=== PATIENT | female | born 1975 | race Caucasian/White ===

== ENCOUNTER → 2021-09-08 | Outpatient (CLI) | payer OTHER ==
--- NOTE | 2021-09-08 16:04 | Diagnostic Imaging Report ---
PROCEDURE: Pelvic comp/transvaginal sonogram. TECHNIQUE: Complete transabdominal and transvaginal pelvic ultrasound was performed. In addition, limited pelvic Doppler was performed. INDICATION: Abnormal uterine bleeding. FINDINGS: Uterus is anteverted measuring 9.1 x 5.3 x 6.1 cm. Endometrium is 9 mm in thickness. There is an area of heterogeneity in the right uterus measuring 2.3 x 1.8 x 1.7 cm, suggestive of a fibroid. Right ovary measures 2.8 x 1.1 x 2.3 cm, and the left ovary measures 4.1 x 3.4 x 4.6 cm. Left ovary does contain a septated cystic mass measuring 3.7 x 3.2 x 3.7 cm. Both ovaries demonstrate blood flow. No free fluid is seen. IMPRESSION: 1. Uterine fibroid. 2. Complex septated cystic left ovarian mass. Follow-up ultrasound in 6-8 weeks is recommended to confirm clearing. Dictated by: Dictated on workstation # [id number]
== END ==
LOC: RAD 12:58
PROVIDERS: ATTEND Obstetrics & Gynecology
DX: D25.9 Leiomyoma of uterus, unspecified (principal); N83.202 Unspecified ovarian cyst, left side
CPT/HCPCS: 76830; 76856

== ENCOUNTER 2021-10-16 05:32 | Outpatient (CLI) | payer OTHER ==
[~2021-10-16] VITALS: Ht 154.9 cm; Wt 62.3 kg
[2021-10-17] MEDS ORDERED: LEVO100C4 PO (13:27)
[2021-10-17] MEDS ORDERED: CETI10TA49 PO (13:28)
[2021-10-17] MEDS ORDERED: ZOLP6.252 PO (13:28)
== END 2021-10-17 13:29 | disposition home or self-care (01) ==
LOC: PREOP 05:32
PROVIDERS: ATTEND Obstetrics & Gynecology
DX: Z01.818 Encounter for other preprocedural examination (principal)

== ENCOUNTER 2021-10-23 08:28 | Day surgery (SDC) | payer OTHER ==
[~2021-10-23] VITALS: Ht 154 cm; Wt 62.3 kg
[2021-10-23] VITALS (9 sets, daily range): BP systolic 92–136; BP diastolic 49–80
[~2021-10-23 08:28] MED LIST: CETI10TA49 PO; LEVO100C4 PO; ZOLP6.252 PO
[2021-10-23 09:05] LABS: BASOPHILS # (AUTO) 0.1 10^3/uL (0.0-0.1); BASOPHILS % (AUTO) 2 % (0-10); EOSINOPHILS # (AUTO) 0.4 10^3/uL (0.0-0.3); EOSINOPHILS % (AUTO) 7 % (0-10); HEMATOCRIT 34 % (35-52); HEMOGLOBIN 11.1 g/dL (11.5-16.0); LYMPHOCYTES % (AUTO) 33 % (12-44); MEAN CORPUSCULAR HEMOGLOBIN 29 pg (25-34); MEAN CORPUSCULAR HGB CONC 33 g/dL (32-36); MEAN CORPUSCULAR VOLUME 87 fL (80-99); MEAN PLATELET VOLUME 11.4 fL (9.0-12.2); MONOCYTES # (AUTO) 0.9 10^3/uL (0.0-1.0); MONOCYTES % (AUTO) 15 % (0-12); NEUTROPHILS # (AUTO) 2.6 10^3/uL (1.8-7.8); NEUTROPHILS % (AUTO) 43 % (42-75); PLATELET COUNT 255 10^3/uL (130-400); WHITE BLOOD COUNT 6.1 10^3/uL (4.3-11.0)
[2021-10-23] MEDS ORDERED: BUPIVACAINE 0.25% 30 ML (SENSORCAINE) VIAL ONE (09:13)
[2021-10-23] MEDS ORDERED: FAMOTIDINE 20MG/2ML IV (PEPCID) ONE (09:21)
[2021-10-23] MEDS: LACTATED RINGERS 1,000 ML IV PRN ×2 (09:24→10:36)
[2021-10-23] MEDS ORDERED: FAMOTIDINE 20MG/2ML IV (PEPCID) IV ONE (09:30)
--- NOTE | 2021-10-23 09:59 | Progress Note-Pre Operative ---
Pre-Operative Progress Note H&P Reviewed The H&P was reviewed, patient examined and no changes noted. Date Seen by Provider: Oct 23, 2021 Time Seen by Provider: 09:50 Date H&P Reviewed: Oct 23, 2021 Time H&P Reviewed: 09:50 Pre-Operative Diagnosis: WANDER Wang DO Oct 23, 2021 09:59
[2021-10-23] MEDS ORDERED: proPOfol 200 MG/20 ML (DIPRIVAN) VIAL IV ONE (10:00)
[2021-10-23] MEDS ORDERED: LIDOCAINE PF 2% 5 ML (XYLOCAINE) VIAL ONE (10:00)
[2021-10-23] MEDS ORDERED: MIDAZOLAM 2 MG/2 ML (VERSED) VIAL ONE (10:00)
[2021-10-23] MEDS ORDERED: fentaNYL INJ 100 MCG/2 ML AMP ONE (10:00)
[2021-10-23] MEDS ORDERED: ONDANSETRON 4 MG/2 ML (SDV) Z0FRAN ONE (10:00)
[2021-10-23] MEDS ORDERED: SEVOFLURANE (ULTANE) 15 ML INHAL SOLN ONE ×2 (10:00→10:59)
[2021-10-23] MEDS ORDERED: KETOROLAC 30 MG/ML VIAL IVP ONE (10:15)
[2021-10-23] MEDS ORDERED: ONDANSETRON 4 MG/2 ML (SDV) Z0FRAN IVP PRN ×2 (10:15→11:15)
[2021-10-23] MEDS ORDERED: D5 LR IV SOLUTION 1,000 ML IV SCH (10:15)
--- NOTE | 2021-10-23 10:15 | Discharge Inst-Women's Service ---
Discharge Inst-Women's Serv Depart Medication/Instructions New, Converted or Re-Newed RX: Transmitted to Pharmacy Problems Reviewed?: Yes Consults/Follow Up Additional Follow Up: Yes Orders/Referrals Dr. Gregory in weeks Activity Activity: Activity as Tolerated Driving Instructions: No Driving for 1 Week NO SMOKING: NO SMOKING Nothing Inside Vagina: No Douching, No [place], No Tampons Diet Discharge Diet: No Restrictions Symptoms to Report to : Pain Increased, Fever Over 101 Degrees F, Vaginal Bleeding Increase, Questions/Concerns WANDER GREGORY DO Oct 23, 2021 10:15
--- NOTE | 2021-10-23 10:38 | History & Physical-Surgical ---
HPO-Surgical History of Present Illness Chief Complaint: AUB Diagnosis/Surgical Indication: aub Procedure: DILATION AND CURETTAGE Date of Surgery: Oct 23, 2021 Allergies and Home Medications Allergies Coded Allergies: cephalexin (Verified Adverse Reaction, Unknown, NAUSEA/EMESIS, 10/17/21) Patient Home Medication List Home Medication List Reviewed: Yes Cetirizine HCl (Zyrtec) 10 Mg Tablet, 10 MG PO UD, (Reported) Entered as Reported by: KOLBY ALLEN on 10/17/211327 Last Action: Last Taken Edited Levothyroxine Sodium (Levothyroxine) 100 Mcg Capsule, 100 MCG PO DAILY, (Reported) Entered as Reported by: KOLBY ALLEN on 10/17/211326 Last Action: Last Taken Edited Zolpidem Tartrate (Ambien Cr) 6.25 Mg Tab.mphase, 6.25 MG PO HS, (Reported) Entered as Reported by: KOLBY ALLEN on 10/17/211327 Last Action: Last Taken Edited Past Szhwpmk-Zwsglg-Ulouzm Hx Patient Social History Smoking Status: Never a Smoker 2nd Hand Smoke Exposure: No Recent Hopitalizations: No Seasonal Allergies Seasonal Allergies: Yes Surgeries Yes (TUBAL LIGATION) Appendectomy, Gallbladder Respiratory No Cardiovascular Yes (HX SEVERAL YEARS AGO-NO ISSUES ANYMORE) Irregular Heartbeat Neurological Yes Headaches /Migraines Reproductive System Female Reproductive Disorders: Menstrual 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 Gastrointestinal Yes Gall Bladder Disease Musculoskeletal Yes Fractures Endocrine History of Endocrine Disorders: Yes (HASHIMOTOS) Endocrine Disorders: Hypothyroidsim Cancer No Psychosocial History of Psychiatric Problem: No Integumentary History of Skin or Integumenta: No Blood Transfusions History of Blood Disorders: No Exam Vital Signs Vital Signs 10/23/21 08:55 Temp 36.2 Pulse 63 Resp 18 B/P (MAP) 136/74 (94) Pulse Ox 100 O2 Delivery Room Air Capillary Refill : Labs Laboratory Tests Test 10/23/21 08:55 Range/Units White Blood Count 6.1 4.3-11.0 10^3/uL Red Blood Count 3.88 3.80-5.11 10^6/uL Hemoglobin 11.1 L 11.5-16.0 g/dL Hematocrit 34 L 35-52 % Mean Corpuscular Volume 87 80-99 fL Mean Corpuscular Hemoglobin 29 25-34 pg Mean Corpuscular Hemoglobin Concent 33 32-36 g/dL Red Cell Distribution Width 13.2 10.0-14.5 % Platelet Count 255 130-400 10^3/uL Mean Platelet Volume 11.4 9.0-12.2 fL Immature Granulocyte % (Auto) 0 % Neutrophils (%) (Auto) 43 42-75 % Lymphocytes (%) (Auto) 33 12-44 % Monocytes (%) (Auto) 15 H 0-12 % Eosinophils (%) (Auto) 7 0-10 % Basophils (%) (Auto) 2 0-10 % Neutrophils # (Auto) 2.6 1.8-7.8 10^3/uL Lymphocytes # (Auto) 2.0 1.0-4.0 10^3/uL Monocytes # (Auto) 0.9 0.0-1.0 10^3/uL Eosinophils # (Auto) 0.4 H 0.0-0.3 10^3/uL Basophils # (Auto) 0.1 0.0-0.1 10^3/uL Immature Granulocyte # (Auto) 0.0 0.0-0.1 10^3/uL General Appearance: Alert, Oriented X3 HEENT: Atraumatic Respiratory: Clear to Auscultation Cardiovascular: Regular Rate Abdominal: Normal Bowel Sounds Extremities: No Clubbing Skin: No Rashes Neuro: Normal Gait Psych/Mental Status: Mental Status NL Assessment/Plan Assessment and Plan Plan: Dilatation and Curretage Admission Diagnosis 46 yo w/ AUB Admission Status: Observation WANDER GREOGRY DO Oct 23, 2021 10:38
--- NOTE | 2021-10-23 11:10 | Anesthesia-General Post-Op ---
General Patient Condition Mental Status/LOC: Same as Preop Cardiovascular: Satisfactory Nausea/Vomiting: Absent Respiratory: Satisfactory Pain: Controlled Complications: Absent Post Op Complications Complications None Follow Up Care/Instructions Patient Instructions None needed. Anesthesia/Patient Condition Patient Condition Patient is doing well, no complaints, stable vital signs, no apparent adverse anesthesia problems. No complications reported per nursing. JOSE ALLEN CRNA Oct 23, 2021 11:10
[2021-10-23] MEDS ORDERED: MEPERIDINE (DEMEROL) INJ 50 MG/ML IVP ONE (11:15)
[2021-10-23] MEDS ORDERED: fentaNYL INJ 100 MCG/2 ML AMP IVP ONE (11:15)
[2021-10-23] MEDS ORDERED: morphine INJ 10 MG/ML 1ML (SYR OR VIAL) IVP ONE (11:15)
--- NOTE | 2021-10-26 11:47 | OPERATIVE REPORT ---
DATE OF SERVICE: PREOPERATIVE DIAGNOSES: A 38-year-old female with abnormal uterine bleeding. POSTOPERATIVE DIAGNOSES: A 38-year-old female with abnormal uterine bleeding. PROCEDURE PERFORMED: D and C. SURGEON: Wander rGegory DO ANESTHESIA: LMA general. ESTIMATED BLOOD LOSS: Minimal. URINE OUTPUT: 50 mL drained at the end of the procedure. FLUIDS: 800 mL lactated Ringer's solution. FINDINGS: 1. A grossly normal appearing external female genitalia. 2. Moderate to copious amount of endometrial curetting tissue collected. SPECIMEN SENT: Endometrial curettings. INDICATIONS FOR PROCEDURE: This 40-year-old female was a patient, who had sought care in my office for abnormal bleeding that had been occurring due to her age. I discussed with the patient need for endometrial sampling as well as the possibility of D and C being both diagnostic and curative. She was agreeable to proceed. A consent was obtained in the preoperative area after all of her questions were answered and the patient was taken to the operating room. OPERATIVE REPORT IN DETAIL: Once in the operating room, general anesthesia was found to be adequate, she was placed in dorsal lithotomy position, prepped and draped in a normal sterile fashion, where a timeout was performed. A weighted speculum was inserted in the patient's vagina after the bladder was drained using straight catheterization. A right angle retractor was used to visualize the cervix. It was grasped at 12 o'clock position using a long Allis clamp. I then performed paracervical block at 3 and 9 o'clock positions on the cervix. Care was taken to aspirate for injecting 5 mL of 0.25% Marcaine injected into each site. I then gently sound the uterine cavity depth, which was found to be 8 cm. I dilated the cervix using Hanks dilators to maximum dilatation approximately 1 cm, at which point, I performed a gentle curettage of all endometrial surfaces using a medium size endometrial curette. After there was a gentle uterine cry appreciated on all surfaces, the tissue that was collected is captured and sent as endometrial curettings, after which all instruments were removed from the patient's vagina. The patient tolerated the procedure well and sent to recovery area in a stable condition. Lap and sponge counts were correct at the end of the procedure. Instrument counts were correct as well. Job ID: [id number] DocumentID: [id number] Dictated Date: 10/26/2021 08:15:13 Electrolysis Operator Date: 10/26/2021 11:46:25 Dictated By: WANDER GREGORY DO
== END 2021-10-23 13:00 | disposition home or self-care (01) ==
LOC: SDC 08:28
PROVIDERS: ATTEND Obstetrics & Gynecology
DX: N84.0 Polyp of corpus uteri (principal)
CPT/HCPCS: 36415; 84703; 85025; 86850; 86900; 86901; 87081

== ENCOUNTER → 2021-11-17 | Outpatient (CLI) | payer OTHER ==
--- NOTE | 2021-11-17 13:24 | Diagnostic Imaging Report ---
PROCEDURE: Pelvic comp/transvaginal sonogram. TECHNIQUE: Complete transabdominal and transvaginal pelvic ultrasound was performed. In addition, limited pelvic Doppler was performed. INDICATION: Septated cyst, followup. Correlation is made with prior ultrasound from 09/08/2021. Uterus measures 9.7 x 5.3 x 5.9 cm. Endometrium is 9 mm in thickness. Cervical nabothian cysts are noted. Right ovary measures 3.1 x 1.4 x 2.0 cm, the left ovary measures 3.6 x 1.7 x 2.7 cm. There are several cystic structures involving the left ovary, largest approximately 2.3 x 1.7 x 1.8 cm. Cyst on prior study measured approximately 3.7 cm. There is blood flow to both ovaries. No free fluid is seen. IMPRESSION: 1. Decrease in size of left ovarian cyst when compared with prior study from 09/08/2021. Dictated by: Dictated on workstation # [id number]
== END ==
LOC: RAD 11:24
PROVIDERS: ATTEND Nurse Practitioner Women's Health
DX: N83.202 Unspecified ovarian cyst, left side (principal)
CPT/HCPCS: 76830; 76856

== ENCOUNTER 2022-01-15 05:25 | Outpatient (CLI) | payer OTHER ==
[~2022-01-15] VITALS: Ht 154.9 cm; Wt 63.0 kg
[2022-01-16] MEDS ORDERED: RT-ALBUINH IH (11:39)
== END 2022-01-16 11:40 | disposition home or self-care (01) ==
LOC: PREOP 05:25
PROVIDERS: ATTEND Obstetrics & Gynecology
DX: Z01.818 Encounter for other preprocedural examination (principal)

== ENCOUNTER 2022-01-22 06:02 | Day surgery (SDC) | payer OTHER ==
[~2022-01-22] VITALS: Ht 154.9 cm; Wt 63.0 kg
[2022-01-22] VITALS (8 sets, daily range): BP systolic 97–143; BP diastolic 36–82
[~2022-01-22 06:02] MED LIST changes: +RT-ALBUINH IH
[2022-01-22] MEDS ORDERED: CLINDAMYCIN 900 MG/50 ML IVPB 50 ML IV ONE (06:30)
[2022-01-22] MEDS ORDERED: metroNIDAZOLE 500MG/100ML IVPB 100 ML IV ONE (06:30)
[2022-01-22] MEDS ORDERED: LACTATED RINGERS 1,000 ML IV PRN (06:30)
[2022-01-22] MEDS ORDERED: FAMOTIDINE 20MG/2ML IV (PEPCID) IV ONE (06:45)
[2022-01-22] MEDS ORDERED: ONDANSETRON 4 MG/2 ML (SDV) Z0FRAN IV ONE (06:45)
[2022-01-22] MEDS ORDERED: LIDOCAINE PF 2% 5 ML (XYLOCAINE) VIAL ONE (07:00)
[2022-01-22] MEDS ORDERED: ROCURONIUM 10 MG/ML 5 ML SYRINGE IV ONE (07:00)
[2022-01-22] MEDS ORDERED: proPOfol 200 MG/20 ML (DIPRIVAN) VIAL IV ONE (07:00)
[2022-01-22] MEDS ORDERED: NEOSTIGMINE 3 MG/3 ML VIAL ONE (07:00)
[2022-01-22] MEDS ORDERED: ONDANSETRON 4 MG/2 ML (SDV) Z0FRAN ONE (07:00)
[2022-01-22] MEDS ORDERED: fentaNYL INJ 100 MCG/2 ML AMP ONE (07:00)
[2022-01-22] MEDS ORDERED: MIDAZOLAM 2 MG/2 ML (VERSED) VIAL ONE (07:00)
[2022-01-22] MEDS ORDERED: GLYCOPYRROLATE 0.2 MG/ML (ROBINUL) 2 ML VIAL ONE (07:00)
[2022-01-22 07:10] LABS: BASOPHILS # (AUTO) 0.1 10^3/uL (0.0-0.1); BASOPHILS % (AUTO) 2 % (0-10); EOSINOPHILS # (AUTO) 0.3 10^3/uL (0.0-0.3); EOSINOPHILS % (AUTO) 6 % (0-10); HEMATOCRIT 30 % (35-52); HEMOGLOBIN 9.2 g/dL (11.5-16.0); LYMPHOCYTES # (AUTO) 1.5 10^3/uL (1.0-4.0); LYMPHOCYTES % (AUTO) 27 % (12-44); MEAN CORPUSCULAR HEMOGLOBIN 25 pg (25-34); MEAN CORPUSCULAR HGB CONC 31 g/dL (32-36); MEAN CORPUSCULAR VOLUME 81 fL (80-99); MEAN PLATELET VOLUME 10.8 fL (9.0-12.2); MONOCYTES # (AUTO) 0.6 10^3/uL (0.0-1.0); MONOCYTES % (AUTO) 11 % (0-12); NEUTROPHILS # (AUTO) 3.1 10^3/uL (1.8-7.8); NEUTROPHILS % (AUTO) 55 % (42-75); PLATELET COUNT 254 10^3/uL (130-400); WHITE BLOOD COUNT 5.7 10^3/uL (4.3-11.0)
--- NOTE | 2022-01-22 07:20 | Progress Note-Pre Operative ---
Pre-Operative Progress Note Date of Available H&P: Jan 22, 2022 Date H&P Reviewed: Jan 22, 2022 Time H&P Reviewed: 07:05 History & Physical: H&P Reviewed Pre-Operative Diagnosis: AUB, Chronic blood loss anemia, left ovarian cyst WANDER GREGORY DO Jan 22, 2022 07:20
[2022-01-22] MEDS ORDERED: BUPIVACAINE 0.25% 30 ML (SENSORCAINE) VIAL ONE (07:21)
--- NOTE | 2022-01-22 07:27 | Discharge Inst-Women's Service ---
Discharge Inst-Women's Serv Depart Medication/Instructions New, Converted or Re-Newed RX: Transmitted to Pharmacy Problems Reviewed?: Yes Consults/Follow Up Additional Follow Up: Yes Orders/Referrals Dr. Berumen in 7-10 days and in 8 weeks Activity Activity: Activity as Tolerated Driving Instructions: No Driving for 1 Week NO SMOKING: NO SMOKING Nothing Inside Vagina: No Douching, No [employer], No Tampons Diet Discharge Diet: No Restrictions Symptoms to Report to : Bleeding Excessive, Pain Increased, Fever Over 101 Degrees F, Vaginal Bleeding Increase, Questions/Concerns For Any Problems or Questions: Contact Your Physician Skin/Wound Care Infection Signs and Symptoms: Increased Redness, Foul Odor of Wound, Increased Drainage, Skin Itchy or Has a Rash, Increased Swelling, Temperature Above 101 F Operative Area Clean and Dry: Keep Incision Clean/Dry Stitches/Wanda/Dermabond: Dermabond, Care of Stitches Bathing Instructions: WANDER Severino DO Jan 22, 2022 07:27
[2022-01-22] MEDS ORDERED: HYDR-34 PO (07:29)
[2022-01-22] MEDS ORDERED: SIME80TA16 PO (07:29)
[2022-01-22] MEDS ORDERED: IBUP-1773 PO (07:29)
[2022-01-22] MEDS ORDERED: DOCU100C37 PO (07:29)
[2022-01-22] MEDS ORDERED: ANTACID SUSP 30 ML UDC (MYLANTA) PO PRN (07:30)
[2022-01-22] MEDS ORDERED: KETOROLAC 30 MG/ML VIAL IVP PRN (07:30)
[2022-01-22] MEDS ORDERED: LACTATED RINGERS 1,000 ML IV SCH (07:30)
[2022-01-22] MEDS ORDERED: SIMETHICONE 80 MG (MYLICON) CHEW PO PRN (07:30)
[2022-01-22] MEDS ORDERED: HYDROmorphone 2 MG/ML VIAL (DILAUDID) IV ONE (07:30)
[2022-01-22] MEDS ORDERED: HYDROcodone/APAP 7.5 MG/325 MG (LORTAB, LORCET PLUS) TABLET PO PRN (07:30)
[2022-01-22] MEDS ORDERED: DOCUSATE SODIUM 100 MG (COLACE) CAP PO PRN (07:30)
[2022-01-22] MEDS ORDERED: ZOLPIDEM 5 MG (AMBIEN) TAB PO PRN (07:30)
[2022-01-22] MEDS ORDERED: CEPACOL SORE THROAT-COUGH LOZENGE MM PRN (07:30)
[2022-01-22] MEDS ORDERED: morphine INJ 10 MG/ML 1ML (SYR OR VIAL) IVP ONE (07:30)
[2022-01-22] MEDS ORDERED: ONDANSETRON 4 MG/2 ML (SDV) Z0FRAN IV PRN (07:30)
[2022-01-22] MEDS ORDERED: ONDANSETRON 4 MG/2 ML (SDV) Z0FRAN IVP PRN (07:30)
[2022-01-22] MEDS ORDERED: BUPIVACAINE 0.25% 30 ML (SENSORCAINE) VIAL INJ ONE (08:09)
[2022-01-22] MEDS ORDERED: SEVOFLURANE (ULTANE) 15 ML INHAL SOLN ONE (08:43)
[2022-01-22] MEDS ORDERED: KETOROLAC 30 MG/ML VIAL ONE (09:11)
--- NOTE | 2022-01-22 10:48 | Anesthesia-General Post-Op ---
General Patient Condition Mental Status/LOC: Same as Preop Cardiovascular: Satisfactory Nausea/Vomiting: Absent Respiratory: Satisfactory Pain: Controlled Complications: Absent Post Op Complications Complications None Follow Up Care/Instructions Patient Instructions None needed. Anesthesia/Patient Condition Patient Condition Patient was doing well in PACU with no complaints, stable vital signs, no apparent adverse anesthesia problems. No complications reported per nursing. DAVID ZAMBRANO DO Jan 22, 2022 10:48
--- NOTE | 2022-01-22 19:06 | OPERATIVE REPORT ---
DATE OF SERVICE: PREOPERATIVE DIAGNOSES: 1. A 46-year-old female with abnormal uterine bleeding. 2. Chronic blood loss anemia. 3. Left ovarian cyst seen on ultrasound. POSTOPERATIVE DIAGNOSES: 1. A 46-year-old female with abnormal uterine bleeding. 2. Chronic blood loss anemia. 3. Left ovarian cyst seen on ultrasound. 4. Normal appearing left ovary. PROCEDURES PERFORMED: Robotic-assisted total laparoscopic hysterectomy with bilateral salpingectomy. SURGEON: Mango Berumen DO LAW FIRM PARTNER: Kim Thompson DNP, was necessary for manipulation and retraction throughout the procedure. ANESTHESIA: General endotracheal. ESTIMATED BLOOD LOSS: Minimal. URINE OUTPUT: 30 mL clear at the end of the procedure. FLUIDS: 1200 mL lactated Ringer's solution. FINDINGS: A grossly normal appearing external female genitalia. Normal appearing cervix. Grossly normal appearing bilateral ovaries, fallopian tubes with evidence of prior tubal ligation. There is a bulky hyperemic appearance of the uterus. Otherwise serosal surface of the uterus appears to be normal. SPECIMEN SENT: Uterus, bilateral fallopian tubes with cervix. INDICATIONS FOR PROCEDURE: This 40-year-old female is a patient, who had sought care in my office. She initially had an endometrial evaluation due to her age and bleeding pattern via D and C. This subsided some of her bleeding short-term. She also had had a history of chronic blood loss anemia, was given iron infusions in the past. Her bleeding returned after the D and C and she wished to proceed with more aggressive measures. There was also a finding of a left ovarian cyst on ultrasound that the patient wished to address as well. We discussed in the preoperative area how we would preserve her ovaries at her request if they should look normal. I discussed with the patient risk of the procedure in detail including risk of bleeding, infection, damage to surrounding structures including, but not limited to bowel, bladder, ureter, kidneys, possible need for reoperation, postoperative complications that may occur, recovery timeframe, risk from anesthesia, and even . After everything was discussed with the patient in detail, consent was obtained in the preoperative area. The patient was taken to the operating room. OPERATIVE REPORT IN DETAIL: Once in the operating room, general anesthesia was found to be adequate. She was placed in the dorsal lithotomy position, prepped and draped in a normal sterile fashion. A timeout was performed. A Owusu catheter was placed using sterile technique. A weighted speculum inserted to the patient's vagina. Right angle retractor was used to visualize the cervix. It was grasped at 12 o'clock position using a long Allis clamp and 0 Vicryl suture was then placed at the anterior lip of the cervix and the suture was then used as my retraction point on the cervix. I then gently sound the uterine cavity, depth was found to be 10 cm. I selected a 10 cm Yandy uterine manipulator tip and a 3.5 cm colpotomy ring. I advanced the manipulator tip into the uterus deploying the balloon and advanced the colpotomy ring around the vaginal fornix. Excellent manipulation is noted on bimanual after that. I then removed all the other instruments from the patient's vagina, performed change of gloves. I turned my attention to the abdomen, where subcostally at the midclavicular line on the left side, I introduced the Veress needle until intraperitoneal placement was confirmed using saline drop test. An opening pressure of 5 mmHg was noted. I proceeded to a max pressure of 15 mmHg using CO2 gas, at which point, I made an infraumbilical incision that is 8 mm with a knife and directed a blunt laparoscopic da [place] camera trocar through the incision until intraperitoneal placement was confirmed using the laparoscope. There was no evidence of damage from entry. A brief scan of the upper abdominal anatomy appears to be grossly normal. I then had the patient placed in a steep Trendelenburg where we were able to visualize all my pelvic anatomy as defined in my findings above. I placed two lateral to my lateral trocars, 8 mm trocars approximately 8 cm lateral to my infraumbilical trocar. Once both these trocars were placed under direct visualization of the laparoscope, the da [place] robot was brought in and docked in the appropriate fashion placing the SynchroSeal device on the left hand and monopolar bunny on the right hand. I then took my place at the [employer] [place] operative console and performed the following dissection bilaterally starting at the uteroovarian ligament, I sealed and transected using the SynchroSeal device. I then created a window in the mesosalpinx, took this laterally amputating the fallopian tube from its surrounding blood supply. I then grasped the round ligament, which I sealed and transected using the SynchroSeal device. I then grasped the entire broad ligament and sealed this using the SynchroSeal device down to the level of the lower uterine segment, at which point, I the anterior and posterior leaflet of the broad ligament, anterior leaflet was taken around the anterior vaginal fornix and posterior leaflets was taken around the posterior vaginal fornix. This allowed me to skeletonize the uterine vessels laterally, which I sealed and transected using the SynchroSeal device. I then created a colpotomy at 12 o'clock position using monopolar bunny and took this circumferentially around the vaginal fornix amputating the cervix away from the vagina. The entire specimen was then removed through the vagina. I then closed the vaginal cuff using 2-0 V-Loc in a running fashion, after which, there was no active bleeding noted from any of my dissection planes. I then undocked the da [place] robot and proceeded with the remainder of the case laparoscopically. I copiously irrigated the pelvis using normal saline. Once again, no active bleeding noted from any of my dissection planes. I placed Surgiflo hemostatic agent over all my planes of dissection. I had the patient taken out of steep Trendelenburg, where I removed the lateral trocars under visualization of the laparoscope and infraumbilical trocars were left in place to release the remainder of the insufflation and introduced 10 mL of 0.25% Marcaine in the peritoneal cavity for postoperative pain management. I then removed this trocar as well. The skin was reapproximated using 4-0 Monocryl in interrupted subcuticular stitches. Dermabond was applied to the incisions and Band-Aids were placed over these. Owusu catheter was left in place. The patient tolerated the procedure well and sent to recovery area in stable condition. Lap and sponge counts were correct at the end of the procedure. Instrument counts were correct as well. A 900 mg of erythromycin and 500 mg of Flagyl were given preoperatively for infection prophylaxis. Job ID: [id number] DocumentID: [id number] Dictated Date: 01/22/2022 09:26:53 Ballpoint Pens Assembler Date: 01/22/2022 19:06:16 Dictated By: DO NICOLA NEWBERRY
[2022-01-23] MEDS ORDERED: IBUPROFEN 600 MG (MOTRIN) TAB PO SCH (12:00)
== END 2022-01-22 14:10 | disposition home or self-care (01) ==
LOC: SDC 06:02 → WS 10:00 → SDC 14:10
PROVIDERS: ATTEND Obstetrics & Gynecology
DX: N83.8 Other noninflammatory disorders of ovary, fallopian tube and broad ligament (principal); N88.8 Other specified noninflammatory disorders of cervix uteri; D50.0 Iron deficiency anemia secondary to blood loss (chronic); N83.202 Unspecified ovarian cyst, left side; Z98.51 Tubal ligation status
CPT/HCPCS: 36415; 84703; 85025; 86850; 86900; 86901; 87081